=== PATIENT | male | born 1960 | race Caucasian/White ===

== ENCOUNTER → 2024-05-26 18:33 | Outpatient (REF) | payer OTHER, SELFPAY | LOC: MRI 3T 18:33 | PROVIDERS: ATTENDING PHYSICIAN Physician Assistant; FAMILY PHYSICIAN Family Medicine | DX: M25.571 Pain in right ankle and joints of right foot (principal) | CPT/HCPCS: 73721 ==

== ENCOUNTER 2025-01-24 06:31 | Day surgery (SDC) | payer OTHER, SELFPAY ==
[2025-01-11 09:02] LABS: Hematocrit 42.3 % (39.0-52.0); Hemoglobin 14.9 g/dL (13.0-18.0); Mean Corp Hgb Conc. 35.2 g/dL (33.0-37.0); Mean Corpuscular Volume 95.1 fL (80.0-94.0); Platelet Count 264 10^3/uL (130-400); Red Cell Dist. Width 12.7 % (11.5-14.5)
[2025-01-11 09:52] LABS: Blood Urea Nitrogen 11 mg/dl (9-20); Calcium 9.4 mg/dl (8.4-10.2); Carbon Dioxide 26 mmol/L (22-30); Chloride 103 mmol/L (98-107); Glucose 104 mg/dl (70-99); Potassium 4.3 mmol/L (3.5-5.1); Sodium 141 mmol/L (135-145); eGFR > 60.00
[2025-01-11 10:02] LABS: Glycohemoglobin (HgbA1c) 4.9 % (4.0-5.9)
[2025-01-24] VITALS (13 sets, daily range): BP systolic 133–182; BP diastolic 84–101
[2025-01-24] MEDS: TYLENOL 1000 MG PO (13:07)
[2025-01-24] MEDS: CELEBREX 200 MG PO (13:07)
[2025-01-24] MEDS: NORMOSOL-R/PLASMALYTE-A 1000 IV (13:08)
[2025-01-24] MEDS: DILAUDID 0.5 MG IV ×3 (19:29→20:07)
[2025-01-24] MEDS: ZOFRAN 4 MG IV (20:41)
--- NOTE | 2025-01-27 22:33 | OR.RPT ---
Operative Report
Operative Report
OPERATIVE REPORT
Patient:�Sridhar Perez
Date of Surgery:�01/24/2025
Surgeon:�Dino Bailey DPM
Assistants:�Dino Sepulveda DPM
Preoperative Diagnosis:
Severe right subtalar joint osteoarthritis
Right peroneal tendon adhesions
Postoperative Diagnosis:
Same as preoperative
Procedures Performed:
Right subtalar joint arthrodesis (CPT�73509)
Right peroneal tendon tenolysis (CPT�82137)
Anesthesia:�General with regional block
Hemostasis:�Thigh tourniquet which remained inflated to 300mmHg for the entirety of the procedure
Estimated Blood Loss:�Minimal
Specimens:�None
Implants:�Two Tupman 7.0 mm Fixos screws
Biologic Materials:�3 cc Tupman Augment mixed with crushed cancellous bone chips
Complications:�None
Indications for Procedure
The patient is a 64-year-old male with longstanding right hindfoot pain and functional limitation due to severe subtalar joint osteoarthritis confirmed on radiographs and MRI. Symptoms persisted despite exhaustive conservative treatment. �After
thorough discussion of risks, benefits, alternatives, and postoperative expectations, the patient consented to subtalar arthrodesis.
Procedure in Detail
The patient was brought to the operating room and placed in the supine position, and general anesthesia was induced. A well-padded thigh tourniquet was applied. The right lower extremity was prepped and draped in the usual sterile manner, and the
tourniquet was inflated to 300mmHg after exsanguination.
A curvilinear incision was made along the extending from the posterolateral fibula, to the sinus tarsi and towards the calcaneocuboid joint. Blunt dissection was carried through subcutaneous tissues with care to protect all neurovascular structures.
The peroneal tendon sheath was identified and incised longitudinally. Dense adhesions surrounding both peroneus longus and brevis tendons were encountered and�bluntly debrided. Smooth tendon excursion was restored, and no significant tears were
noted. The area was irrigated thoroughly.
A combination of both blunt and sharp dissection was then carried down to expose the subtalar joint. The extensor retinaculum, extensor digitorum brevis muscle belly, and sinus tarsi fat pad were gently reflected, providing full visualization of the
joint. Severe degenerative changes were evident, including cartilage loss, sclerosis, and osteophytes.
Residual cartilage was removed using a combination of curettes, osteotomes, and a asia. Subchondral bone was fenestrated with a 2.0mm drill to promote vascular ingrowth.� A mixture of�3 cc of Marilu Augment combined with crushed cancellous bone
chips was prepared. This graft composite was packed deeply and circumferentially into the subtalar arthrodesis site, ensuring complete contact across the prepared joint surfaces.
The subtalar joint was positioned in neutral dorsiflexion with slight valgus, confirmed fluoroscopically. Two Marilu 7.0 mm Fixos screws�were placed from the posterior calcaneus into the talus under fluoroscopic guidance, achieving excellent
compression and stability.
Final fluoroscopic views confirmed appropriate alignment, bone graft placement, and hardware positioning.
The arthrodesis site and wound were irrigated, hemostasis confirmed, and the incision was closed in layers with 2-0 vicryl for deep tissues, 3-0 vicryl for subcutaneous tissues, and 3-0 nylon for skin. Sterile dressings were applied, and a
well-padded posterior splint was placed. After tourniquet deflation, the toes were warm and well perfused.
Postoperative Plan
Non�weight-bearing to the right lower extremity for 6�8 weeks
Elevation and icing for swelling control
DVT prophylaxis
Follow-up in 10�14 days for evaluation and suture removal
Conversion to cast or CAM boot pending early radiographic healing
Serial imaging to monitor fusion progression
== END 2025-01-24 21:00 | disposition home or self-care (01) ==
LOC: SDS 06:31
PROVIDERS: ATTENDING PHYSICIAN Student in an Organized Health Care Education/Training Program; FAMILY PHYSICIAN Family Medicine
DX: M19.071 Primary osteoarthritis, right ankle and foot (principal)
CPT/HCPCS: 28725; 73610; 76000; 80048; 83036; 85027; 93005; C1713